=== PATIENT | male | born 1955 | race Caucasian/White ===

== ENCOUNTER 2022-02-25 11:48 | Emergency (ER) | payer OTHER, MEDICARE, SELFPAY ==
[2022-02-25 12:28] VITALS: BP 121/72; PULSE 75; RESP 16; TEMP 36.8; O2SAT 95
--- NOTE | 2022-02-25 12:57 | CRLHL7_ITS ---
For Patients: As a result of the Century Cures Act, medical imaging exams and procedure reports are released immediately into your electronic medical record. You may view this report before your referring provider. If you have questions, please contact your health care provider. INDICATION: Fall on outstretched hand wrist injury. Swelling, dorsal distal radius, scaphoid, fall TECHNIQUE: Wrist radiograph 3 views right COMPARISON: None FINDINGS: Bone: There is a nondisplaced fracture present along the distal radial metaphyseal region. Joint: The radiocarpal, carpal, and carpometacarpal joints are unremarkable in appearance. Soft tissue: Unremarkable. No radiopaque foreign bodies are seen. IMPRESSION: 1. There is a nondisplaced fracture present along the distal radial metaphyseal region. Dictated by Dennis Cabrales MD @ 02/25/2022 1:17:45 PM Dictated by: Dennis Cabrales MD @ 02/25/2022 13:17:48 (Electronically Signed)
--- NOTE | 2022-02-25 13:00 | ED.NURSE ---
Ice pack applied to pt R wrist
[2022-02-25 13:51] VITALS: BP 144/99; PULSE 75; O2SAT 98
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
== END 2022-02-25 14:09 | disposition home or self-care (01) ==
PROVIDERS: Emergency Provider Family Medicine; PCP Family Medicine
DX: S52.501A Unspecified fracture of the lower end of right radius, initial encounter for closed fracture (principal); W19.XXXA Unspecified fall, initial encounter
CPT/HCPCS: 29125; 73110; 99283

== ENCOUNTER 2022-03-04 15:46 | Outpatient (CLI) | payer OTHER, MEDICARE, SELFPAY ==
[2022-03-04 17:03] LABS: Chloride* 97 mmol/L (96-114); Potassium* 4.1 mmol/L (3.6-5.1); Sodium* 131 mmol/L (135-149)
[2022-03-04 17:06] LABS: Blood Urea Nitrogen* 18 mg/dL (7-30); Carbon Dioxide* 29 mmol/L (20-32); Cholesterol* 160 mg/dL (90-199); Creatinine* 0.9 mg/dL (0.5-1.5); Estimated Glomerular Filt Rate 93 ml/min
[2022-03-04 17:07] LABS: Calcium* 8.9 mg/dL (8.4-10.6); Glucose* 101 mg/dL (60-115); HDL Cholesterol* 83 mg/dL (>=40); LDL Cholesterol Calculated 57 mg/dL (<100); Triglycerides* 101 mg/dL (40-149)
[2022-03-04 17:36] LABS: PSA Screen* 0.57 ng/mL (0.10-4.00)
== END 2022-03-04 15:47 | disposition home or self-care (01) ==
PROVIDERS: PCP Family Medicine; Visit Provider Family Medicine
DX: I10 Essential (primary) hypertension (principal); Z12.5 Encounter for screening for malignant neoplasm of prostate; Z13.6 Encounter for screening for cardiovascular disorders; Z13.0 Encounter for screening for diseases of the blood and blood-forming organs and certain disorders involving the immune mechanism
CPT/HCPCS: 80048; 80061; 84153

== ENCOUNTER 2022-05-29 15:30 | Outpatient (RCR) | payer MEDICARE, OTHER, SELFPAY ==
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
== END 2022-05-29 16:58 | disposition home or self-care (01) ==
PROVIDERS: PCP Family Medicine; Visit Provider Physician Assistant Surgical
DX: S52.501A Unspecified fracture of the lower end of right radius, initial encounter for closed fracture (principal); M25.531 Pain in right wrist; M25.631 Stiffness of right wrist, not elsewhere classified; Z51.89 Encounter for other specified aftercare
CPT/HCPCS: 97110; 97140; 97165; 97535; X5282

== ENCOUNTER 2023-02-06 15:45 | Emergency (ER) | payer OTHER, SELFPAY ==
--- NOTE | 2023-02-06 21:34 | W.ED.CHARTNO ---
ED Chart Note Chart Note Details Date: 02/06/23 Details: Patient left without being seen. I had no contact or care for this patient.
== END 2023-02-06 16:26 | disposition home or self-care (01) ==
PROVIDERS: Emergency Provider Family Medicine; PCP Family Medicine
DX: Z53.21 Procedure and treatment not carried out due to patient leaving prior to being seen by health care provider (principal)